=== PATIENT | female | born 1970 | race Caucasian/White ===

== ENCOUNTER 2017-06-14 10:32 | Emergency (ER) | payer BC, OTHER ==
[~2017-06-14] VITALS: Ht 165.1 cm; Wt 58.0 kg
[~2017-06-14 10:32] MED LIST: IBUP600T44 PO; PRENTAB26 PO
[2017-06-14 10:35] VITALS: TEMP 36.7; Ht 165.1 cm; Wt 58.0 kg
[2017-06-14] MEDS ORDERED: KETOROLAC TROMETHAMINE 30 MG/ML VIAL IV STA (11:12)
[2017-06-14] MEDS ORDERED: ACETAMINOPHEN 500 MG TAB PO STA (11:12)
--- NOTE | 2017-06-14 11:14 | EMERGENCY ROOM VISIT NOTE ---
History Report prepared by Reyna: Louise Whitehead Under the Supervision of: Dr. Homero Spence M.D. First contact with patient: 10:48 Chief Complaint: CHEST PAIN Stated Complaint: CHEST PAIN SINCE 1130PM LAST NIGHT Nursing Triage Summary: Chest pain since Wednesday. Radiating into left neck. Pain 8/10. Denies cardiac hx. History of Present Illness The patient is a 47 year old white female with no past medical history who presents to the ED with a cc of intermittent chest pain beginning three days ago. Positive cough, nausea, diaphoresis, left neck pain, shortness of breath with exertion and fatigue with exertion. She currently rates her discomfort as an 8/10 in severity. The patient states that lying down worsens her pain. She states that she tried taking 6 Advil without relief of her symptoms. The patient denies any recent trauma. She reports that her last menstrual period was end of April. The patient denies any significant family history of heart disease. She denies any drug or tobacco use. The patient denies any history of PEs or DVTs. Source of History: patient Onset: three days ago Position: chest Symptom Intensity: 8/10 Timing: intermittent Modifying Factors (Worsening): other (lying down) Associated Symptoms: + diaphoresis, + SOB, + nausea, + fatigue Review of Systems See HPI for pertinent positives and negatives. A total of ten systems were reviewed and were otherwise negative. Past Medical & Surgical Surgical Problems: (1) Previous section Family History Patient reports no known family medical history. Social History Smoking Status: Never Smoker Smokeless Tobacco Use: No Alcohol Use: none Marital Status: Housing Status: lives with significant other Occupation Status: unemployed Current/Historical Medications Scheduled Azithromycin (Zithromax), 250 MG PO DAILY Prednisone (Prednisone), 50 MG PO DAILY Allergies Coded Allergies: Penicillins (Verified Allergy, Unknown, 06/14/17) Physical Exam Vital Signs Date Time Temp Pulse Resp B/P (MAP) Pulse Ox O2 Delivery O2 Flow Rate FiO2 06/14/17 14:10 62 16 115/76 98 06/14/17 12:21 72 18 125/76 99 Room Air 06/14/17 12:05 67 06/14/17 11:40 99 Room Air 06/14/17 11:40 99 Room Air 06/14/17 10:35 36.7 73 18 117/65 99 Room Air Physical Exam GENERAL: Awake, alert, well-appearing, NAD HENT: Normocephalic, atraumatic. EYES: Normal conjunctiva. Sclera non-icteric. NECK: Supple. No nuchal rigidity. FROM. RESPIRATORY: CTAB, no rhonchi, wheezing, crackles CARDIAC: RRR, no MRG ABDOMEN: Soft, NTND, BS+ MSK: No chest wall TTP, no LE edema. Negative Homans sign. NEURO: GCS 15, CN 2-12 intact, moves all 4s on command SKIN: No rash or jaundice noted. Medical Decision & Procedures ER Provider Diagnostic Interpretation: X-ray: Per my interpretation, radiologist review. CHEST ONE VIEW PORTABLE HISTORY: Atypical CHEST PAIN COMPARISON: None. FINDINGS: Hazy airspace opacity within the lingula. The right lung is clear. No pleural effusions. No pneumothorax. The heart is normal in size. No rib fractures. IMPRESSION: Hazy airspace opacity within the lingula which likely represents a pneumonia. Recommend one month chest x-ray follow to ensure resolution. Electronically signed by: Stanley Sun M.D. 06/14/2017 11:45 AM Dictated Date/Time: 06/14/2017 11:35 AM Laboratory Results 06/14/17 10:55 Red Blood Count 4.34, Mean Corpuscular Volume 86.9, Mean Corpuscular Hemoglobin 28.8, Mean Corpuscular Hemoglobin Concent 33.2, Mean Platelet Volume 10.3, Neutrophils (%) (Auto) 74.7, Lymphocytes (%) (Auto) 16.2, Monocytes (%) (Auto) 6.6, Eosinophils (%) (Auto) 1.8, Basophils (%) (Auto) 0.5, Neutrophils # (Auto) 6.55, Lymphocytes # (Auto) 1.42, Monocytes # (Auto) 0.58, Eosinophils # (Auto) 0.16, Basophils # (Auto) 0.04 06/14/17 10:55 Test 06/14/17 10:55 White Blood Count 8.77 K/uL (4.8-10.8) Red Blood Count 4.34 M/uL (4.2-5.4) Hemoglobin 12.5 g/dL (12.0-16.0) Hematocrit 37.7 % (37-47) Mean Corpuscular Volume 86.9 fL (80-100) Mean Corpuscular Hemoglobin 28.8 pg (25-34) Mean Corpuscular Hemoglobin Concent 33.2 g/dl (32-36) Platelet Count 359 K/uL (130-400) Mean Platelet Volume 10.3 fL (7.4-10.4) Neutrophils (%) (Auto) 74.7 % Lymphocytes (%) (Auto) 16.2 % Monocytes (%) (Auto) 6.6 % Eosinophils (%) (Auto) 1.8 % Basophils (%) (Auto) 0.5 % Neutrophils # (Auto) 6.55 K/uL (1.4-6.5) Lymphocytes # (Auto) 1.42 K/uL (1.2-3.4) Monocytes # (Auto) 0.58 K/uL (0.11-0.59) Eosinophils # (Auto) 0.16 K/uL (0-0.5) Basophils # (Auto) 0.04 K/uL (0-0.2) RDW Standard Deviation 43.4 fL (36.4-46.3) RDW Coefficient of Variation 13.6 % (11.5-14.5) Immature Granulocyte % (Auto) 0.2 % Immature Granulocyte # (Auto) 0.02 K/uL (0.00-0.02) Prothrombin Time 10.2 SECONDS (9.0-12.0) Prothromb Time International Ratio 1.0 (0.9-1.1) Activated Partial Thromboplast Time 28.7 SECONDS (21.0-31.0) Partial Thromboplastin Ratio 1.1 Anion Gap 10.0 mmol/L (3-11) Est Creatinine Clear Calc Drug Dose 81.3 ml/min Estimated GFR () 106.6 Estimated GFR (Non- 91.9 BUN/Creatinine Ratio 21.6 (10-20) Calcium Level 8.7 mg/dl (8.5-10.1) Total Bilirubin 0.3 mg/dl (0.2-1) Direct Bilirubin < 0.1 mg/dl (0-0.2) Aspartate Amino Transf (AST/SGOT) 15 U/L (15-37) Alanine Aminotransferase (ALT/SGPT) 21 U/L (12-78) Alkaline Phosphatase 79 U/L (45-117) Troponin I < 0.015 ng/ml (0-0.045) Total Protein 8.2 gm/dl (6.4-8.2) Albumin 3.8 gm/dl (3.4-5.0) Lipase 143 U/L (73-393) Human Chorionic Gonadotropin, Qual NEG (NEG) Laboratory results reviewed by me Medications Administered Medications (Trade) Dose Ordered Sig/Gus Route Start Time Stop Time Status Last Admin Dose Admin Acetaminophen (Tylenol Tab) 1,000 mg NOW STAT PO 06/14/17 11:12 06/14/17 11:13 DC 06/14/17 11:34 1,000 MG Ketorolac Tromethamine (Toradol Inj) 30 mg NOW STAT IV 06/14/17 11:12 06/14/17 11:13 DC 06/14/17 11:34 30 MG Benzonatate (Tessalon Perles Cap) 100 mg NOW ONCE PO 06/14/17 12:30 06/14/17 12:31 DC 06/14/17 12:58 100 MG Guaifenesin (Mucinex Contr Rel Tab) 1,200 mg ONE STAT PO 06/14/17 12:30 06/14/17 12:32 DC 06/14/17 12:58 1,200 MG Azithromycin (Zithromax Tab) 500 mg NOW ONCE PO 06/14/17 13:30 06/14/17 13:31 DC 06/14/17 13:27 500 MG Prednisone (PredniSONE TAB) 50 mg NOW STAT PO 06/14/17 13:17 06/14/17 13:19 DC 06/14/17 13:28 40 MG Prednisone (PredniSONE TAB) 10 mg STK-MED ONCE .ROUTE 06/14/17 13:25 06/14/17 13:26 DC 06/14/17 13:28 10 MG ECG Indication: chest pain Rate (beats per minute): 75 Rhythm: normal sinus Findings: other (normal intervals, normal axis, no STS or TWI) ED Course 1107: The patient was evaluated in room C10. A complete history and physical exam was performed. 1238: I reevaluated the patient and she is resting comfortably. I discussed the exam findings with her and I discussed the treatment plan. She verbalized complete understanding and agreement. She is ready to go home. Medical Decision Differential diagnosis: Etiologies such as cardiac ischemia, aortic dissection, pulmonary embolism, pneumonia, pneumothorax, musculoskeletal, infections, pericarditis, myocarditis , esophageal rupture, gastrointestinal, as well as others were entertained. The patient is a 47 year old white female with no past medical history who presents to the ED with a cc of intermittent chest pain beginning three days ago. Patient was seen and evaluated the bedside. Patient had complained of some cough and ongoing 3 weeks, URI symptoms, and chest pain. Patient did give a questionable lead concerning chest pain type story. Patient states that she to get tired with ambulation but denied true shortness of breath. Patient is a productive sputum but denies any hemoptysis or recent car or plane travel, lower extremity swelling. Patient is PRC negative. Less likely to be PE with regard to the patient. This sounds more infectious in nature. Patient did have a chest x-ray which showed a questionable pneumonia. Patient was given a first dose of prednisone as well as azithromycin here. Patient white blood cell count within normal limits. Patient EKG nonischemic with a negative troponin. Patient had a heart score of less than 3. Patient was deemed low risk is suitable for outpatient follow-up and treatment. Furthermore, given the patient's history and physical, infectious pneumonia is more likely. Patient was informed of all findings. Patient was told return if she does not get better within the next 24-48 hours. Patient was told to avoid things like alcohol and tobacco. Patient was agreeable to this plan of care. Patient was given strict follow-up, discharge, and return precautions. All questions were answered. Patient was deemed suitable for outpatient follow-up at this time. Patient agreed with the plan of care and was safely discharged home. Medication Reconcilliation Current Medication List: was personally reviewed by me Impression Primary Impression: Chest wall pain Additional Impressions: Bronchitis Pneumonia Scribe Attestation The scribe's documentation has been prepared under my direction and personally reviewed by me in its entirety. I confirm that the note above accurately reflects all work, treatment, procedures, and medical decision making performed by me. Departure Information Dispostion Home / Self-Care Prescriptions Prednisone (PREDNISONE) 50 Mg Tab 50 MG PO DAILY for 4 Days, #4 TAB Prov: Homero Spence M.D. 06/14/17 Azithromycin (Zithromax) 250 Mg Tab 250 MG PO DAILY, #4 TAB Prov: Homero Spence M.D. 06/14/17 Referrals No Doctor, Assigned (PCP) Forms Call Back Authorization, HOME CARE DOCUMENTATION FORM, IMPORTANT VISIT INFORMATION Patient Instructions Bronchitis Acute, Chest Pain - [facility], My [facility] Additional Instructions Please return to the emergency department if you have worsening or recurrent symptoms not amenable to at-home treatment. Please call for a follow-up appointment with her primary care physician. Please take your medications as prescribed. If you have other concerns and/or complaints please feel free to also call your primary care physician's office or return the ED for further evaluation, management, and treatment. You may take 600 mg Ibuprofen every 6 hours as needed for pain with food for no more than 2 consecutive days. You may take tylenol 1000 mg every 6 hours as needed for pain. You may take motrin and tylenol separately or at the same time. Take your medications as prescribed. If taking an antibiotic consider taking a probiotic and/or eating yogurt, but at the least, please take with food as it can cause upset stomach. He may also try things like saline nasal sprays, saltwater gargles, tea with honey and lemon, and [id number] medications that may help with her symptoms. You have been examined and treated today on an emergency basis only. This is not a substitute for, or an effort to provide, complete comprehensive medical care. It is impossible to recognize and treat all injuries or illnesses in a single emergency department visit. It is therefore important that you follow up closely with [facility], your PCP, and/or your specialist(s). Call as soon as possible for an appointment. Thank you for your time and consideration. I look forward to speaking with you again soon. Please don't hesitate to call us if you have any questions. Problem Qualifiers Additional Impressions: Pneumonia Pneumonia type: due to unspecified organism Laterality: left Lung location : unspecified part of lung Qualified Codes: J18.9 - Pneumonia, unspecified organism
[2017-06-14 11:36] LABS: BASO % 0.5 %; BASO ABS # 0.04 K/uL (0-0.2); COMPLETE YES; EOS % 1.8 %; HEMATOCRIT 37.7 % (37-47); IG% 0.2 %; LYMPH % 16.2 %; LYMPH ABS # 1.42 K/uL (1.2-3.4); MEAN CELL VOLUME 86.9 fL (80-100); MEAN CORPUSCULAR HEMOGLOBIN 28.8 pg (25-34); MEAN CORPUSCULAR HGB CONC 33.2 g/dl (32-36); MEAN PLATELET VOLUME 10.3 fL (7.4-10.4); MONO % 6.6 %; NEUT % 74.7 %; PLATELET COUNT 359 K/uL (130-400); RED BLOOD COUNT 4.34 M/uL (4.2-5.4); WHITE BLOOD COUNT 8.77 K/uL (4.8-10.8)
[2017-06-14 11:40] VITALS: O2SAT 99
--- NOTE | 2017-06-14 11:46 | DIAGNOSTIC IMAGING REPORT ---
CHEST ONE VIEW PORTABLE HISTORY: Atypical CHEST PAIN COMPARISON: None. FINDINGS: Hazy airspace opacity within the lingula. The right lung is clear. No pleural effusions. No pneumothorax. The heart is normal in size. No rib fractures. IMPRESSION: Hazy airspace opacity within the lingula which likely represents a pneumonia. Recommend one month chest x-ray follow to ensure resolution. Electronically signed by: Stanley Sun M.D. 06/14/2017 11:45 AM Dictated Date/Time: 06/14/2017 11:35 AM
[2017-06-14 11:50] LABS: PARTIAL THROMBOPLASTIN RATIO 1.1; PROTHROMBIN TIME (PATIENT) 10.2 SECONDS (9.0-12.0)
[2017-06-14 11:51] LABS: ALT/SGPT 21 U/L (12-78); BLOOD UREA NITROGEN 17 mg/dl (7-18); BUN/CREATININE RATIO 21.6 (10-20); CALCIUM 8.7 mg/dl (8.5-10.1); CARBON DIOXIDE 22 mmol/L (21-32); CHLORIDE 104 mmol/L (98-107); CREATININE 0.77 mg/dl (0.60-1.20); GLUCOSE 84 mg/dl (70-99); POTASSIUM 3.8 mmol/L (3.5-5.1); SODIUM 136 mmol/L (136-145)
[2017-06-14 11:56] LABS: ALKALINE PHOSPHATASE 79 U/L (45-117); AST/SGOT 15 U/L (15-37); PREG INTERNAL NEGATIVE QC NEG CLEAR BACKGROUND; PREG INTERNAL POSITIVE QC POS CONTROL LINE
[2017-06-14] MEDS ORDERED: BENZONATATE 100MG CAP PO ONE (12:30)
[2017-06-14] MEDS ORDERED: GUAIFENESIN 600 MG TABCR PO STA (12:30)
[2017-06-14] MEDS ORDERED: AZIT250T PO (13:17)
[2017-06-14] MEDS ORDERED: PRED50TA PO (13:17)
[2017-06-14] MEDS ORDERED: AZITHROMYCIN 250 MG TAB PO ONE (13:30)
[2017-06-14 14:10] VITALS: BP 115/76; PULSE 62; O2SAT 98
== END 2017-06-14 14:11 | disposition home or self-care (01) ==
LOC: C.EDB 10:33 → C.EDC 14:11
DX: J18.0 Bronchopneumonia, unspecified organism (principal)